=== PATIENT | male | born 1965 | race American Indian/Alaskan Native ===

== ENCOUNTER 2016-11-30 14:39 | Emergency (ER) | payer MEDICAID ==
[2016-11-30 15:32] VITALS: TEMP 98.3; BMI 34.0
--- NOTE | 2016-11-30 16:04 | C.PDOC ---
History Of Present Illness 51 y/o male presents to the ED with complains of left knee pain x1 days. Pt states he was in a supermarket yesterday when several cans fell onto his left knee. Pt denies numbness, weakness or any other injury. Time Seen by Provider: 11/30/16 15:33 Chief Complaint (Nursing): Lower Extremity Problem/Injury History Per: Patient History/Exam Limitations: no limitations Onset/Duration Of Symptoms: Hrs Current Symptoms Are (Timing): Still Present Severity: Mild Recent travel outside of the [place]: No - Knee Description Of Injury: Struck With Object Past Medical History Reviewed: Historical Data, Nursing Documentation, Vital Signs Vital Signs: Last Vital Signs Temp 98.3 F 11/30/16 15:20 Pulse 78 11/30/16 17:00 Resp 17 11/30/16 17:00 BP 102/62 11/30/16 17:00 Pulse Ox 97 11/30/16 17:00 Family History: States: Unknown Family Hx - Social History Hx Alcohol Use: No Hx Substance Use: No - Immunization History Hx Tetanus Toxoid Vaccination: Yes Hx Influenza Vaccination: Yes Hx Pneumococcal Vaccination: No Review Of Systems Musculoskeletal: Positive for: Other (left knee pain) Neurological: Negative for: Weakness, Numbness Physical Exam - Physical Exam Appears: Non-toxic, No Acute Distress Skin: Warm, Dry, No Rash Head: Atraumatic, Normacephalic Extremity: Tenderness (Diffuse left knee tenderness), Pedal Edema (+1 pitting edema bilateral legs), No Calf Tenderness, Capillary Refill (<2 seconds), No Deformity, No Swelling, Other (multiple vericose veins to bilateral legs; bilateral toe nails with onchomycosis) Pulses: Left Dorsalis Pedis: Normal, Right Dorsalis Pedis: Normal Neurological/Psych: Oriented x3, Normal Motor, Normal Sensation ED Course And Treatment O2 Sat by Pulse Oximetry: 96 (room air) Pulse Ox Interpretation: Normal Medical Decision Making Medical Decision Making: Gave ibuprofen and knee brace in ED. Discharged patient with instructions to follow up with ortho. Disposition Counseled Patient/Family Regarding: Diagnosis, Need For Followup - Disposition Referrals: [facility] [Outside] [facility] [place] [Outside] [facility] [Outside] Disposition: HOME/ ROUTINE Disposition Time: 17:01 Condition: STABLE Additional Instructions: Wear knee brace for comfort. FOllow up with orthopedist or in clinic. Take ibuprofen for pain if needed. Apply cold compresses to knee several times a day. Instructions: Knee Pain (ED) Forms: General Discharge Instructions - Clinical Impression Clinical Impression: Knee pain, left - PA / REGISTERED PUBLIC HEALTH NURSE / Resident Statement MD/DO has reviewed & agrees with the documentation as recorded. - Scribe Statement The provider has reviewed the documentation as recorded by the Scribe Daniel Tucker All medical record entries made by the Arronibbnetley were at my direction and personally dictated by me. I have reviewed the chart and agree that the record accurately reflects my personal performance of the history, physical exam, medical decision making, and the department course for this patient. I have also personally directed, reviewed, and agree with the discharge instructions and disposition.
[2016-11-30 17:01] VITALS: BP 102/62; PULSE 78; RESP 17
[2016-11-30 17:03] VITALS: O2SAT 96
== END 2016-11-30 17:10 | disposition home or self-care (01) ==
LOC: C.ER 14:39
DX: M25.562 Pain in left knee (principal)

== ENCOUNTER 2017-11-02 16:38 | Inpatient (IN) | payer MEDICAID ==
[2017-11-02 16:38] VITALS: BMI 34.0
--- NOTE | 2017-11-02 17:05 | C.PDOC ---
History Of Present Illness <Petey Martínez - Last Filed: 11/02/17 18:50> <Swati Vanessamejia - Last Filed: 11/03/17 03:45> 52 year old male, with history of heroin abuse, presents to ED requesting detox from heroin. Last used today at 12 noon. Full HPI limited at this time secondary to altered mental status. (Petey Martínez) <Petey Martínez - Last Filed: 11/02/17 18:50> <RasheedaSwatimejia - Last Filed: 11/03/17 03:45> Time Seen by Provider: 11/02/17 16:51 Chief Complaint (Nursing): Psychiatric Evaluation Past Medical History Reviewed: Historical Data, Nursing Documentation, Vital Signs Family History: States: Unknown Family Hx - Social History Hx Alcohol Use: No Hx Substance Use: Yes - Immunization History Hx Tetanus Toxoid Vaccination: Yes Hx Influenza Vaccination: Yes Hx Pneumococcal Vaccination: No <Petey Martínez - Last Filed: 11/02/17 18:50> Vital Signs: Last Vital Signs Temp 97.7 F 11/02/17 16:42 Pulse 62 11/03/17 01:23 Resp 18 11/03/17 01:23 BP 128/89 11/03/17 01:23 Pulse Ox 100 11/03/17 01:23 Review Of Systems Review Of Systems: ROS cannot be obtained secondary to pt's inabilty to answer questions. <Petey Martínez - Last Filed: 11/02/17 18:50> Physical Exam <Petey Martínez - Last Filed: 11/02/17 18:50> <HollietellySwatimejia - Last Filed: 11/03/17 03:45> - Physical Exam Additional Physical Exam Comments: Constitutional: No acute distress. Head: Normocephalic. Atraumatic. Eyes: PERRL. ENT: Moist mucous membranes. Neck: Supple. Cardiovascular: Regular rate. Radial pulse 2+ bilaterally. Chest: No tenderness. Respiratory: Clear to auscultation bilaterally. Breathing spontaneously. GI: Soft. Nontender. Nondistended. Back: No CVA tenderness. Musculoskeletal: No tenderness or swelling of extremities. Skin: No rash. Neurologic: Drowsy but arousable. (Petey Martínez) ED Course And Treatment - Laboratory Results Result Diagrams: 11/02/17 17:41 11/02/17 17:41 O2 Sat by Pulse Oximetry: 97 Pulse Ox Interpretation: Normal <Petey Martínez - Last Filed: 11/02/17 18:50> - Laboratory Results Result Diagrams: 11/02/17 17:41 11/02/17 17:41 Pulse Ox Interpretation: Normal <Swati Vanessadi - Last Filed: 11/03/17 03:45> Medical Decision Making <Petey Martínez - Last Filed: 11/02/17 18:50> <Swati Vanessadi - Last Filed: 11/03/17 03:45> Medical Decision Making: Will medically clear for detox admission. Pending labs. Will sign out to ED night team. (Petey Martínez) Disposition <Petey Martínez - Last Filed: 11/02/17 18:50> Discussed With : Gaurang Marion Comment: accepted the pt on his service and took over the carea t 3:43 AM Doctor Will See Patient In The: Hospital Counseled Patient/Family Regarding: Studies Performed, Diagnosis - Disposition Disposition Time: 03:43 <Swati Vanessadi - Last Filed: 11/03/17 03:45> - Disposition Disposition: HOSPITALIZED Condition: FAIR Forms: [employer] (Vietnamese) - Clinical Impression Clinical Impression: Schizoaffective disorder - Scribe Statement The provider has reviewed the documentation as recorded by the Scribe <Petey Martínez - Last Filed: 11/02/17 18:50> <Swati Vanessadi - Last Filed: 11/03/17 03:45> - Scribe Statement Yari Vizcaino All medical record entries made by the Scribe were at my direction and personally dictated by me. I have reviewed the chart and agree that the record accurately reflects my personal performance of the history, physical exam, medical decision making, and the department course for this patient. I have also personally directed, reviewed, and agree with the discharge instructions and disposition. (Petey Martínez) Decision To Admit <Petey Martínez - Last Filed: 11/02/17 18:50> - Pt Status Changed To: Hospital Disposition Of: Inpatient - Admit Certification Admit to Inpatient:: After my assessment, the patient will require hospitalization for at least two midnights. This is because of the severity of symptoms shown, intensity of services needed, and/or the medical risk in this patient being treated as an outpatient. - InPatient: Physician Admission Certification: I certify that this patient requires 2 or more midnights of care for the following reason:: After my assessment, the patient will require hospitalization for at least two midnights. This is because of the severity of symptoms shown, intensity of services needed, and/or the medical risk in this patient being treated as an outpatient. - . Bed Request Type: Detox Admitting Physician: Gaurang Marion <Bob Vanessa - Last Filed: 11/03/17 03:45> - . Patient Diagnosis: Schizoaffective disorder
[2017-11-02 17:44] LABS: BASO % 0.4 % (0.0-2.0); EOS # 0.2 K/uL (0.0-0.7); EOS % 4.5 % (0.0-4.0); HEMOGLOBIN 11.2 g/dL (12.0-18.0); LYMPH # 1.9 K/uL (1.0-4.3); LYMPH % 46.2 % (20.0-40.0); MEAN CELL VOLUME 88.3 fL (80.0-94.0); MEAN CORPUSCULAR HEMOGLOBIN 29.1 pg (27.0-31.0); MEAN CORPUSCULAR HGB CONC 32.9 g/dL (33.0-37.0); MEAN PLATELET VOLUME 7.2 fL (7.2-11.7); MONO # 0.3 K/uL (0.0-0.8); MONO % 6.4 % (0.0-10.0); NEUT # 1.7 K/uL (1.8-7.0); NEUT % 42.5 % (50.0-75.0); NRBC % 0.1 % (0.0-2.0); RBC 3.84 Mil/uL (4.40-5.90); WHITE BLOOD COUNT 4.1 K/uL (4.8-10.8)
[2017-11-02 17:56] LABS: ALBUMIN 3.7 g/dL (3.5-5.0); ALT/SGPT 24 U/L (21-72); AST/SGOT 19 U/L (17-59); BLOOD UREA NITROGEN 16 mg/dL (9-20); GFR AFRICAN-AMERICAN > 60; GFR NON-AFRICAN AMERICAN > 60
[2017-11-02 21:46] LABS: SQUAMOUS EPITHIAL < 1 /hpf (0-5); URINE BACTERIA OCC (<OCC); URINE BILIRUBIN NEGATIVE (NEGATIVE); URINE BLOOD NEGATIVE (NEGATIVE); URINE CLARITY Clear (Clear); URINE COLOR Yellow (YELLOW); URINE GLUCOSE (UA) NORMAL (Normal); URINE LEUKOCYTE ESTERASE 1+ Leu/uL (Negative); URINE PROTEIN NEGATIVE (NEGATIVE); URINE UROBILINOGEN NORMAL mg/dL (0.2-1.0)
[2017-11-02 21:54] LABS: BARBITURATES, UR NEGATIVE (NEGATIVE); BENZODIAZEPINES, UR POSITIVE (NEGATIVE); OPIATES, UR POSITIVE (NEGATIVE); PHENCYCLIDINE, UR NEGATIVE (NEGATIVE)
[2017-11-03] MEDS ORDERED: Naloxone 0.4 mg/ml Inj (Adult) IVP ONE (00:04)
--- NOTE | 2017-11-03 05:25 | PCM.BM ---
<AndreaRoselia sutherland - Last Filed: 11/03/17 05:22> Treatment Plan Problems - Problems identified on initial assessmt Opiate Dependence Date Initiated: 11/03/17 Time Initiated: : Date resolved: 11/03/17 Assessment reference: NA Status: Active Treatment assets and liabiliti Patient Assests: ADL independent Patient Liabilities: substance abuse - Milieu Protocol Maintain good personal hygiene: daily Encourage regular showers, daily Remind patient to perform daily oral care, daily Assist patient to perform ADL's Maintain personal safety: every shift Educate patient to report safety concerns to staff, every shift Monitor environment for contraband/sharps Medication safety: Monitor for expected outcome, potential side effects: every shift, Assess barriers to learning: every shift, Assess readiness for medication education: every shift <Virgil Palacios - Last Filed: 11/03/17 10:03> - Diagnosis (1) Opioid use disorder, severe, dependence Status: Acute Interventions: 11/03/17 10:03 * Assess 7x/week regarding severity of withdrawal * Educate regarding risks, benefits, side effects and alternatives of medications * Use Motivational Interviewing for abstinence * Use CBT for relapse prevention * Medication management for withdrawal symptoms * Encourage medication assisted treatment * (2) Schizoaffective disorder Status: Acute Interventions: 11/03/17 10:03 * Assess/adjust medications daily and /or as needed * See patient on an individual basis 7x/week to assess symptoms of depression * Monitor for side effects & effectiveness of medications * <Raquel Garcia - Last Filed: 11/03/17 11:17> Family Contact Family involvement: No known Family/SO - Goals for Treatment Patient goals for treatment: Complete detox and discuss aftercare option with counseling staff. Discharge/Continuing Care - Education Needs Education Needs: Patient Medication, Patient Diagnosis/Disease Process, Patient Coping Skills, Patient Anger Management skills, Patient Placement options, Patient Community resources - Discharge Discharge Criteria: No longer exhibiting s/s of withdrawal, Reduction of target symptoms - Additional Comments 11/03/17 11:16 Aftercare tbd. - Treatment Team Participation Discussed with Family/SO: No Was Patient/Family/SO present at Treatment Team Meeting: No (PT. WAS SICK DURING TREATMENT TEAM. SAW PT. AT BEDSIDE.)
--- NOTE | 2017-11-03 10:03 | PCM.PSYCH ---
Initial Psychiatric Evaluation - Initial Psychiatric Evaluation Type of Admission: Voluntary Legal Status: Capacity Chief Complaint (in patient's own words): "Withdrawing" History of Present Illness and Precipitating Events: He is a 52 y/ AAM, homeless, unemployed, poor historian He admits to using 5-6 bags heroin daily intranasally He also smokes cigarettes sometimes but denies all others He used yesterday last time but got narcan in ED last night He has been to detox once but he has been to [facility] admissions many times (he blames his brother for these and claims he is fine) He also does not want to take any psych meds but agreed to seroquel at bedtime Past psych hx: Schizoaffective d/o Medical hx: Denies Family psych hx: Denies Past Psychiatric History - Past Psychiatric History Previous Treatment History: Inpatient Pertinent Medical Hx (Current Medical&Sleep Prob, Allergies): Allergies Allergy/AdvReac Type Severity Reaction Status Date / Time No Known Allergies Allergy Verified 11/02/17 16:43 No Known Home Med 11/30/16 Review of Systems - Psychiatric Psychiatric: Abnormal Sleep Pattern, Anxiety, Irritability, Mood Swings. absent : Hallucinations, Homicidal Ideation, Paranoia, Suicidal Ideation Mental Status Examination - Personal Presentation Personal Presentation: Looks older than stated age - Affect Affect: Constricted - Motor Activity Motor Activity: Calm - Reliability in Providing Information Reliability in Providing Information: Fair - Speech Speech: Organized - Mood Mood: Other (irate) - Formal Thought Process Formal Thought Process: Paranoia - Cognitive Functions Orientation: Person, Situation, Time Sensorium: Drowsy Attention/Concentration: Easily distracted Abstract Thinking: Deland Estimate of Intelligence: Below average Judgement: Imparied, as evidence by: Poor judgement Memory: Recent intact, as evidence by: Ability to recall events of the day, Remote impaired as evidenced by: Inability to recall sig life events - Risk Risk: Withdrawal, Diminished functioning - Strength & Assets Inventory Strength & Assets Inventory: Cooperative DSM 5 DX - DSM 5 DSM 5 Diagnosis: Opioid withdrawal Opioid use d/o - severe Schizoaffective d/o - unspecified - Recommended/Plan of Treatment Treatment Recommendations and Plan of Treatment: Methadone detox Seroquel HS As needed medications Gabapentin for augmentation if needed All risks, benefits and alternatives of medications, including no medications, discussed and the patient understood and agreed. Attend groups and activities Supportive therapy and psychoeducation [place] for abstinence CBT for relapse prevention Encourage MAT Refer to rehab or IOP Attend self-help groups as well [place] for smoking cessation and patch if needed 34 min
[2017-11-03] MEDS ORDERED: Aluminum Hydroxide/Magnesium Hydroxide Susp (30 mL) PO PRN (11:39)
--- NOTE | 2017-11-04 15:10 | PCM.PYCHPN ---
Psychiatric Progress Note - Psychiatric Progress Note Patient seen today, length of contact: 16 min Patient Chief Complaint: "Better" Problems Identified/Issues Discussed: The pt is seen, chart reviewed, case discussed with staff. Support given, CBT and LA used briefly He is very concrete, disheveled and somewhat psychotic but refusing meds No new symptoms reported, improving slowly and needs more time No SEs from medications, risks discussed. After care discussed Medication Change: Yes (detox changes daily) Medical Record Reviewed: Yes Mental Status Examination - Cognitive Function Orientation: Person, Place, Situation, Time Memory: Impaired Attention: Poor Concentration: Poor Association: Loose Fund of Knowledge: Poor - Mood Mood: Neutral - Affect Affect: Constricted (odd) - Speech Speech: Appropriate - Formal Thought Process Formal Thought Process: No Impairment - Suicidal Ideation Suicidal Ideation: No - Homicidal Ideation Homicidal Ideation: No Goal/Treatment Plan - Goal/Treatment Plan Need for Continued Stay: Discharge may exacerbated symptoms, Severe functional impairment Progress Toward Problem(s) and Goals/Treatment Plan: Methadone detox Seroquel HS As needed medications Gabapentin for augmentation if needed All risks, benefits and alternatives of medications, including no medications, discussed and the patient understood and agreed. Attend groups and activities Supportive therapy and psychoeducation [place] for abstinence CBT for relapse prevention Encourage MAT Refer to rehab or IOP Attend self-help groups as well [place] for smoking cessation and patch if needed
[2017-11-05 06:44] VITALS: O2SAT 100
--- NOTE | 2017-11-05 08:48 | PCM.PYCHDC ---
Mental Status Examination - Mental Status Examination Orientation: Person Discharge Summary - Discharge Note Consultations:: List each consultation separately and include: 1. Reason for request. 2. Findings. 3. Follow-up Summary of Hospital Course include:: 1. Description of specific treatment plan utilized for patients during their course of treatmen. 2. Summarize the time- course for resolution of acute symptoms and/or regressed behaviors. 3. Describe issues identified and worked on during hospitalization. 4. Describe medication utilized. 5. Describe medical problems identified and treated. 6. Reassessment of suicide risk Summary of Hospital Course: He is a 52 y/ AAM, homeless, unemployed, poor historian He admits to using 5-6 bags heroin daily intranasally He also smokes cigarettes sometimes but denies all others He used yesterday last time but got narcan in ED last night He has been to detox once but he has been [place] [facility] [place] many times (he blames his brother for these and claims he is fine) He also does not want to take any psych meds but agreed to seroquel at bedtime Past psych hx: Schizoaffective d/o Medical hx: Denies Family psych hx: Denies C-Line - Diagnosis (1) Opioid use disorder, severe, dependence Current Visit: Yes Status: Acute (2) Schizoaffective disorder Current Visit: Yes Status: Acute - Final Diagnosis (DSM 5) Condition upon Discharge: FAIR Disposition: HOME/ ROUTINE Follow-up Treatment Plan: Methadone detox Seroquel HS As needed medications Gabapentin for augmentation if needed All risks, benefits and alternatives of medications, including no medications, discussed and the patient understood and agreed. Attend groups and activities Supportive therapy and psychoeducation [place] for abstinence CBT for relapse prevention Encourage MAT Refer to rehab or IOP Attend self-help groups as well [place] for smoking cessation and patch if needed Prescriptions/Medication Reconciliation: hydrOXYzine HCl [Atarax] 50 mg PO DAILY PRN #30 tab PRN Reason: Anxiety QUEtiapine [Seroquel] 100 mg PO HS #30 tab
[2017-11-05 09:07] VITALS: BP 150/84; PULSE 88; RESP 20; TEMP 98.6
== END 2017-11-05 09:30 | disposition home or self-care (01) | DRG 744 ==
LOC: C.ER 16:38 → UNDOADMIN 11-03 03:41 → C.7D 11-03 03:41
PROC: HZ2ZZZZ Detoxification Services for Substance Abuse Treatment (ICD-10-PCS; principal; 2017-11-04)
DX: F11.23 Opioid dependence with withdrawal (principal); F25.9 Schizoaffective disorder, unspecified; F17.210 Nicotine dependence, cigarettes, uncomplicated